=== PATIENT | female | born 1960 | race Two or more races ===

== ENCOUNTER → 2021-01-12 | Outpatient (CLI) | payer MEDICAID ==
[2021-01-12 09:55] LABS: Basophils # (auto) 0.1 10 ^3/uL (0-0.2); Basophils % (auto) 2.5 % (0.0-2.0); Eosinophils # (auto) 0.1 10 ^3/uL (0-0.8); Eosinophils % (auto) 2.5 % (0.0-7.0); Hematocrit 41.5 % (36.0-46.0); Hemoglobin 14.1 g/dL (12.2-16.2); Lymphocytes # (auto) 1.5 10 ^3/uL (0.4-5.4); Lymphocytes % (auto) 39.5 % (10.0-50.0); Mean Corpuscular Hemoglobin 33.5 pg (28.0-32.0); Mean Corpuscular Hgb Conc. 34.1 g/dL (32.0-36.0); Mean Corpuscular Volume 98.4 fL (80.0-100.0); Monocytes # (auto) 0.3 10 ^3/uL (0-1.3); Monocytes % (auto) 8.6 % (0.0-12.0); Neutrophils # (auto) 1.8 10 ^3/uL (1.6-8.6); Neutrophils % (auto) 46.9 % (37.0-80.0); Nucleated Red Blood Cells % 0.1 %; Platelet Count (auto) 143 10^3/uL (140-450); Red Blood Cells 4.22 10^6/uL (4.0-5.20); Red Cell Distribution Width 13.7 % (11.8-14.3); White Blood Cell 3.8 10^3/uL (4.4-10.8)
[2021-01-12 10:08] LABS: Urine Bacteria NONE SEEN /hpf (None Seen); Urine Blood Negative /uL (Negative); Urine Mucus FEW (None Seen); Urine Specific Gravity 1.015 (1.001-1.035); Urine WBC 108 /hpf (0 - 5)
[2021-01-12 10:23] LABS: Potassium 3.4 mmol/L (3.5-5.1)
[2021-01-12 10:38] LABS: Bilirubin, Total 0.6 mg/dL (0.2-1.0); Calcium 8.9 mg/dL (8.5-10.1); Total Protein 8.1 g/dL (6.4-8.2)
== END | disposition home or self-care (01) ==
LOC: LAB 08:47
PROVIDERS: ATTEND Internal Medicine
DX: Z12.11 Encounter for screening for malignant neoplasm of colon (principal); E11.9 Type 2 diabetes mellitus without complications; I10 Essential (primary) hypertension
CPT/HCPCS: 36415; 80053; 80061; 81001; 82043; 83036; 85025

== ENCOUNTER 2021-03-12 05:20 | Emergency (ER) | payer MEDICAID ==
[~2021-03-12] VITALS: Ht 152.4 cm; Wt 52.2 kg
[2021-03-12] MEDS ORDERED: ONDANSETRON HCL 4 MG/2 ML VIAL IV ONE (06:45)
[2021-03-12] MEDS ORDERED: MORPHINE SULFATE 4 MG/ML SYR/VIAL IV ONE (06:45)
[2021-03-12] MEDS ORDERED: SODIUM CHLORIDE 0.9% 1,000 ML IV ONE ×5 (07:15→10:15)
[2021-03-12 08:14] LABS: Albumin 4.8 g/dL (3.4-5.0); Calcium 9.1 mg/dL (8.5-10.1); Potassium 3.5 mmol/L (3.5-5.1)
[2021-03-12 08:15] LABS: Basophils # (auto) 0.1 10 ^3/uL (0-0.2); Basophils % (auto) 3.8 % (0.0-2.0); Eosinophils # (auto) 0 10 ^3/uL (0-0.8); Eosinophils % (auto) 0.2 % (0.0-7.0); Hematocrit 49.3 % (36.0-46.0); Hemoglobin 16.1 g/dL (12.2-16.2); Lymphocytes % (auto) 26.3 % (10.0-50.0); Mean Corpuscular Hemoglobin 32.5 pg (28.0-32.0); Mean Corpuscular Hgb Conc. 32.7 g/dL (32.0-36.0); Mean Corpuscular Volume 99.2 fL (80.0-100.0); Monocytes # (auto) 0.4 10 ^3/uL (0-1.3); Neutrophils # (auto) 2.3 10 ^3/uL (1.6-8.6); Neutrophils % (auto) 59.7 % (37.0-80.0); Nucleated Red Blood Cells % 0.3 %; Platelet Count (auto) 94 10^3/uL (140-450); Red Blood Cells 4.97 10^6/uL (4.0-5.20); Red Cell Distribution Width 14.6 % (11.8-14.3); White Blood Cell 3.9 10^3/uL (4.4-10.8)
[2021-03-12 08:16] LABS: BUN/Creatinine Ratio 6.7; Bilirubin, Total 1.3 mg/dL (0.2-1.0)
[2021-03-12] MEDS ORDERED: THIAMINE 100mg/ml INJ (200mg/2ml VIAL) IV ONE (10:15)
[2021-03-12] MEDS ORDERED: PROMETHAZINE HCL 25 MG/ML 1ML IV ONE (10:15)
[2021-03-12 10:19] VITALS: BP 143/83
[2021-03-12 11:04] LABS: Urine Bacteria FEW /hpf (None Seen); Urine Blood TRACE /uL (Negative); Urine Hyaline Cast MANY /lpf (0 - 2); Urine Mucus FEW (None Seen); Urine Specific Gravity 1.017 (1.001-1.035); Urine WBC 23 /hpf (0 - 5)
[2021-03-12 11:55] LABS: Amphetamine Screen, Urine NEGATIVE (NEGATIVE); Barbiturate Scree,Urine NEGATIVE (NEGATIVE); Benzodiazephine Screen, Urine NEGATIVE (NEGATIVE); Cannabinoid Screen, Urine POSITIVE (NEGATIVE); Cocaine Screen, Urine NEGATIVE (NEGATIVE); Opiate Scree,Urine POSITIVE (NEGATIVE); Phencyclidine Screen, Urine NEGATIVE (NEGATIVE)
== END 2021-03-12 12:06 | disposition home or self-care (01) ==
LOC: EDBD 05:20 → ER 05:20
DX: R10.9 Unspecified abdominal pain (principal); F10.10 Alcohol abuse, uncomplicated; E86.0 Dehydration; E87.2 Acidosis
CPT/HCPCS: 36415; 74176; 80053; 80307; 80320; 81001; 83605; 85025; 93005; 96361; 96374; 96375; 99285; J2270; J2405; J2550; J3411; J7030

== ENCOUNTER 2021-03-13 13:54 | Inpatient (IN) | payer MEDICAID ==
[~2021-03-13] VITALS: Ht 160 cm; Wt 54.9 kg
[2021-03-13 15:07] LABS: Basophils # (auto) 0 10 ^3/uL (0-0.2); Basophils % (auto) 0.5 % (0.0-2.0); Eosinophils # (auto) 0 10 ^3/uL (0-0.8); Hematocrit 45.7 % (36.0-46.0); Hemoglobin 15.4 g/dL (12.2-16.2); Lymphocytes # (auto) 0.5 10 ^3/uL (0.4-5.4); Lymphocytes % (auto) 7.5 % (10.0-50.0); Mean Corpuscular Hemoglobin 33.5 pg (28.0-32.0); Mean Corpuscular Hgb Conc. 33.7 g/dL (32.0-36.0); Mean Corpuscular Volume 99.4 fL (80.0-100.0); Monocytes # (auto) 0.5 10 ^3/uL (0-1.3); Monocytes % (auto) 7.5 % (0.0-12.0); Neutrophils # (auto) 5.6 10 ^3/uL (1.6-8.6); Neutrophils % (auto) 84.5 % (37.0-80.0); Nucleated Red Blood Cells % 0.1 %; Platelet Count (auto) 89 10^3/uL (140-450); Red Cell Distribution Width 14.1 % (11.8-14.3); White Blood Cell 6.6 10^3/uL (4.4-10.8)
[2021-03-13 15:21] LABS: Lactic Acid w/Reflex 2.3 mmol/L (0.4-2.0)
[2021-03-13 15:30] LABS: Alanine Aminotransferase 111 U/L (13-56); Albumin 5.2 g/dL (3.4-5.0); Anion Gap 30 (5-15); BUN/Creatinine Ratio 6.8; Blood Urea Nitrogen 9 mg/dL (7-18); Calcium 9.2 mg/dL (8.5-10.1); Chloride 101 mmol/L (98-107); GFR African American 52 mL/min; GFR Non-African American 43 mL/min; Glucose 156 mg/dL (74-106); Potassium 3.6 mmol/L (3.5-5.1); Sodium 138 mmol/L (136-145)
[2021-03-13] MEDS ORDERED: ONDANSETRON HCL 4 MG/2 ML VIAL IV ONE (15:30)
[2021-03-13 15:41] LABS: Alkaline Phosphatase 121 U/L (45-117); Aspartate Aminotransferase 230 U/L (15-37); Bilirubin, Total 2.5 mg/dL (0.2-1.0); Total Protein 10.3 g/dL (6.4-8.2)
[2021-03-13 15:45] LABS: Carbon Dioxide 7 mmol/L (21-32)
[2021-03-13 19:00] LABS: Urine Bacteria FEW /hpf (None Seen); Urine Blood 2+ /uL (Negative); Urine Hyaline Cast MANY /lpf (0 - 2); Urine Specific Gravity 1.019 (1.001-1.035); Urine WBC 3 /hpf (0 - 5)
[2021-03-13] MEDS ORDERED: SODIUM CHLORIDE 0.9% 1,000 ML IV ONE (19:00)
[2021-03-13] MEDS ORDERED: ACETAMINOPHEN 325 MG TAB PO PRN (20:30)
[2021-03-13] MEDS ORDERED: [UNRECOGNIZED DRUG - OTHER] IV ONE ×2 (20:30)
[2021-03-13] MEDS ORDERED: NITROGLYCERIN 0.4 MG SL TAB SL PRN (20:30)
[2021-03-13] MEDS ORDERED: SOD CHL 0.45% 500 ML IV ONE (20:30)
[2021-03-13] MEDS ORDERED: MORPHINE SULF INJ 2 MG/ML SYRINGE 1ML IV PRN (20:30)
[2021-03-13] MEDS ORDERED: SODIUM BICARBONATE IV ONE ×2 (20:30)
[2021-03-13 21:29] LABS: BUN/Creatinine Ratio 8.2; Calcium 8.7 mg/dL (8.5-10.1); Potassium 3.7 mmol/L (3.5-5.1)
[2021-03-13] MEDS ORDERED: SODIUM BICARBONATE 50ML VIAL 100 ML in D5W 5% 1,000 ML IV SCH (22:15)
[2021-03-13 22:56] LABS: Basophils # (auto) 0.1 10 ^3/uL (0-0.2); Basophils % (auto) 0.7 % (0.0-2.0); Eosinophils # (auto) 0 10 ^3/uL (0-0.8); Hematocrit 43.1 % (36.0-46.0); Hemoglobin 14.7 g/dL (12.2-16.2); Lymphocytes # (auto) 0.4 10 ^3/uL (0.4-5.4); Lymphocytes % (auto) 5.6 % (10.0-50.0); Mean Corpuscular Hemoglobin 33.3 pg (28.0-32.0); Mean Corpuscular Hgb Conc. 34.1 g/dL (32.0-36.0); Mean Corpuscular Volume 97.8 fL (80.0-100.0); Monocytes # (auto) 0.8 10 ^3/uL (0-1.3); Monocytes % (auto) 9.8 % (0.0-12.0); Neutrophils # (auto) 6.4 10 ^3/uL (1.6-8.6); Neutrophils % (auto) 83.9 % (37.0-80.0); Nucleated Red Blood Cells % 0.1 %; Platelet Count (auto) 78 10^3/uL (140-450); Red Cell Distribution Width 14.4 % (11.8-14.3); White Blood Cell 7.6 10^3/uL (4.4-10.8)
[2021-03-13] MEDS: MORPHINE SULF INJ 2 MG/ML SYRINGE 1ML IV PRN (22:59)
[2021-03-13] MEDS: PANTOPRAZOLE 40 MG/10 ML VIAL INJ IV SCH (22:59)
[2021-03-13] MEDS: ONDANSETRON HCL 4 MG/2 ML VIAL IV PRN (23:00)
[2021-03-14] MEDS ORDERED: SODIUM BICARBONATE 8.4% INJ 50ML SYRINGE ONE (00:32)
[2021-03-14 07:02] LABS: Albumin 4.1 g/dL (3.4-5.0); Calcium 8.7 mg/dL (8.5-10.1); Potassium 3.2 mmol/L (3.5-5.1)
[2021-03-14 07:06] LABS: BUN/Creatinine Ratio 8.8; Bilirubin, Total 2.2 mg/dL (0.2-1.0); Total Protein 8.4 g/dL (6.4-8.2)
[2021-03-14] MEDS: POTASSIUM CHL 20MEQ/100ML 100 ML IV SCH ×3 (08:11→11:45)
[2021-03-14] MEDS: SODIUM BICARB 50ML SYR 75 ML in SOD CHL 0.45% 1,000 ML IV SCH ×2 (08:29→19:57)
[2021-03-14] MEDS ORDERED: LIDO1PAD55 TOP (09:00)
[2021-03-14] MEDS ORDERED: PRED1SUS4 (09:00)
[2021-03-14] MEDS ORDERED: FLUO0.05 TOP (09:00)
[2021-03-14] MEDS ORDERED: KETO0.5S31 (09:00)
[2021-03-14] MEDS ORDERED: MOXI0.5S3 (09:00)
[2021-03-14] MEDS: ONDANSETRON HCL 4 MG/2 ML VIAL IV PRN (10:53)
[2021-03-14] MEDS ORDERED: THIAMINE 100mg/ml INJ (200mg/2ml VIAL) IV ONE (11:00)
[2021-03-14] MEDS: PANTOPRAZOLE 40 MG/10 ML VIAL INJ IV SCH ×2 (11:03→21:54)
[2021-03-14 11:35] LABS: Alcohol, Urine < 3.0 mg/dL (0-10); Amphetamine Screen, Urine NEGATIVE (NEGATIVE); Barbiturate Scree,Urine NEGATIVE (NEGATIVE); Benzodiazephine Screen, Urine NEGATIVE (NEGATIVE); Cannabinoid Screen, Urine POSITIVE (NEGATIVE); Cocaine Screen, Urine NEGATIVE (NEGATIVE); Opiate Scree,Urine NEGATIVE (NEGATIVE); Phencyclidine Screen, Urine NEGATIVE (NEGATIVE)
[2021-03-14] MEDS: SUCRALFATE 1 GM/10 ML ORAL SUSP PO SCH ×3 (12:32→21:54)
[2021-03-14] MEDS ORDERED: POTASSIUM PHOSPHATE 44 MEQ in D5W 5% 250 ML IV ONE (13:45)
[2021-03-15 04:00] VITALS: BP 145/80
[2021-03-15 05:08] LABS: Basophils # (auto) 0 10 ^3/uL (0-0.2); Basophils % (auto) 1.5 % (0.0-2.0); Eosinophils # (auto) 0 10 ^3/uL (0-0.8); Eosinophils % (auto) 1.5 % (0.0-7.0); Hemoglobin 11.5 g/dL (12.2-16.2); Lymphocytes # (auto) 0.8 10 ^3/uL (0.4-5.4); Monocytes # (auto) 0.3 10 ^3/uL (0-1.3); Neutrophils # (auto) 1.7 10 ^3/uL (1.6-8.6); Nucleated Red Blood Cells % 0.3 %
[2021-03-15 05:10] LABS: Hematocrit 32.3 % (36.0-46.0); Lymphocytes % (auto) 28.1 % (10.0-50.0); Mean Corpuscular Hemoglobin 33.7 pg (28.0-32.0); Mean Corpuscular Hgb Conc. 35.5 g/dL (32.0-36.0); Monocytes % (auto) 10.1 % (0.0-12.0); Neutrophils % (auto) 58.8 % (37.0-80.0); Platelet Count (auto) 55 10^3/uL (140-450); Red Cell Distribution Width 14.1 % (11.8-14.3); White Blood Cell 2.9 10^3/uL (4.4-10.8)
[2021-03-15] MEDS: SODIUM BICARB 50ML SYR 75 ML in SOD CHL 0.45% 1,000 ML IV SCH ×2 (05:15→08:56)
[2021-03-15 05:24] LABS: BUN/Creatinine Ratio 7.3; Calcium 7.2 mg/dL (8.5-10.1)
[2021-03-15 05:42] LABS: Potassium 2.5 mmol/L (3.5-5.1)
[2021-03-15] MEDS: SUCRALFATE 1 GM/10 ML ORAL SUSP PO SCH ×4 (06:21→21:52)
[2021-03-15] MEDS ORDERED: POTASSIUM CHL 20MEQ/100ML 200 ML IV ONE (06:38)
[2021-03-15] MEDS: POTASSIUM CHL 20MEQ/100ML 100 ML IV SCH ×4 (06:38→23:15)
[2021-03-15] MEDS: LACTATED RINGER'S 1,000 ML IV SCH ×2 (09:45→23:05)
[2021-03-15 09:53] LABS: Albumin 3.2 g/dL (3.4-5.0); Bilirubin, Direct 0.9 mg/dL (0-0.2)
[2021-03-15 09:55] LABS: Bilirubin, Total 2.2 mg/dL (0.2-1.0); Total Protein 6.4 g/dL (6.4-8.2)
[2021-03-15] MEDS: PANTOPRAZOLE 40 MG/10 ML VIAL INJ IV SCH ×2 (10:20→21:52)
[2021-03-15] MEDS ORDERED: POTASSIUM PHOSPHATE 44 MEQ in D5W 5% 250 ML IV ONE (11:00)
[2021-03-15 12:41] VITALS: BP 127/82
[2021-03-15] MEDS: ONDANSETRON HCL 4 MG/2 ML VIAL IV PRN (13:49)
[2021-03-15 16:11] VITALS: BP 130/81
[2021-03-15 20:00] VITALS: BP 125/78
[2021-03-15 20:46] LABS: Phosphorus 2.4 mg/dL (2.5-4.90)
[2021-03-15 20:57] LABS: Potassium 2.7 mmol/L (3.5-5.1)
[2021-03-15] MEDS ORDERED: SODIUM PHOSPHATES 20 MEQ in SODIUM CHL 0.9% 100 ML IV ONE (21:15)
[2021-03-16] VITALS (7 sets, daily range): BP systolic 116–151; BP diastolic 76–91
[2021-03-16] MEDS: POTASSIUM CHL 20MEQ/100ML 100 ML IV SCH (01:15)
[2021-03-16] MEDS: SUCRALFATE 1 GM/10 ML ORAL SUSP PO SCH ×4 (05:16→21:38)
[2021-03-16 05:57] LABS: Potassium 3.5 mmol/L (3.5-5.1)
[2021-03-16 06:06] LABS: Albumin 3.2 g/dL (3.4-5.0); BUN/Creatinine Ratio 4.3; Bilirubin, Total 1.4 mg/dL (0.2-1.0); Calcium 6.9 mg/dL (8.5-10.1); Total Protein 6.1 g/dL (6.4-8.2)
[2021-03-16 08:32] LABS: INR 1.25 (0.9-1.15); Partial Thromboplastin Time 27.1 sec (23.0-31.2)
[2021-03-16] MEDS ORDERED: LIDOCAINE VISCOUS 2% 15ML UD ONE (08:54)
[2021-03-16] MEDS ORDERED: diphenhdrAMINE HCL 50 MG/1 ML VL ONE (08:55)
[2021-03-16 10:31] LABS: Hepatitis A Ab IgM Negative; Hepatitis B Core IgM Negative; Hepatitis B Surface Antigen Negative (Negative); Hepatitis C Antibody Negative (Negative)
[2021-03-16] MEDS: MIDAZOLAM HCL 5 MG/ML-1ML VIAL ONE ×2 (10:43→10:46)
[2021-03-16] MEDS: fentaNYL CITRATE 100 MCG/2 ML VL ONE ×2 (10:43→10:46)
[2021-03-16] MEDS: PANTOPRAZOLE 40 MG/10 ML VIAL INJ IV SCH ×2 (11:09→21:38)
[2021-03-16] MEDS: THIAMINE 100mg/ml INJ (200mg/2ml VIAL) IV SCH (11:09)
[2021-03-16] MEDS: CALCITRIOL 0.25 MCG CAP PO SCH (11:40)
[2021-03-16] MEDS: LACTATED RINGER'S 1,000 ML IV SCH ×2 (12:25→21:39)
[2021-03-16] MEDS: MORPHINE SULF INJ 2 MG/ML SYRINGE 1ML IV PRN ×2 (17:36→21:49)
[2021-03-16] MEDS: ONDANSETRON HCL 4 MG/2 ML VIAL IV PRN ×2 (17:37→21:49)
[2021-03-17] MEDS: MORPHINE SULF INJ 2 MG/ML SYRINGE 1ML IV PRN ×3 (04:46→18:01)
[2021-03-17] MEDS: ONDANSETRON HCL 4 MG/2 ML VIAL IV PRN ×3 (04:47→16:31)
[2021-03-17 05:00] VITALS: BP 141/85
[2021-03-17 05:44] LABS: BUN/Creatinine Ratio 7.5; Bilirubin, Total 0.9 mg/dL (0.2-1.0); Calcium 7.3 mg/dL (8.5-10.1)
[2021-03-17 05:46] LABS: Potassium 2.8 mmol/L (3.5-5.1)
[2021-03-17] MEDS ORDERED: POTASSIUM CHL 20 Meq TABLET PO ONE (06:00)
[2021-03-17] MEDS: POTASSIUM CHL 20MEQ/100ML 100 ML IV SCH ×2 (06:21→08:39)
[2021-03-17] MEDS: SUCRALFATE 1 GM/10 ML ORAL SUSP PO SCH ×4 (06:58→21:48)
[2021-03-17 08:39] VITALS: BP 123/79
[2021-03-17] MEDS: PANTOPRAZOLE 40 MG/10 ML VIAL INJ IV SCH ×2 (09:04→21:48)
[2021-03-17] MEDS: CALCITRIOL 0.25 MCG CAP PO SCH (09:04)
[2021-03-17] MEDS: THIAMINE 100mg/ml INJ (200mg/2ml VIAL) IV SCH (09:04)
[2021-03-17 12:24] VITALS: BP 109/65
[2021-03-17 17:00] VITALS: BP 133/81
[2021-03-17 21:54] VITALS: BP 125/73
[2021-03-18] MEDS: ONDANSETRON HCL 4 MG/2 ML VIAL IV PRN ×2 (04:15→10:39)
[2021-03-18] MEDS: MORPHINE SULF INJ 2 MG/ML SYRINGE 1ML IV PRN ×2 (04:19→10:39)
[2021-03-18 04:42] VITALS: BP 130/79
[2021-03-18] MEDS: SUCRALFATE 1 GM/10 ML ORAL SUSP PO SCH ×2 (06:34→11:30)
[2021-03-18 07:15] LABS: Potassium 3.5 mmol/L (3.5-5.1)
[2021-03-18 07:17] LABS: BUN/Creatinine Ratio 10.4; Phosphorus 2.6 mg/dL (2.5-4.90)
[2021-03-18 09:00] VITALS: BP 129/78
[2021-03-18 09:45] LABS: Basophils # (auto) 0 10 ^3/uL (0-0.2); Basophils % (auto) 1.2 % (0.0-2.0); Eosinophils # (auto) 0.1 10 ^3/uL (0-0.8); Eosinophils % (auto) 1.9 % (0.0-7.0); Hematocrit 33.5 % (36.0-46.0); Hemoglobin 11.4 g/dL (12.2-16.2); Lymphocytes # (auto) 0.9 10 ^3/uL (0.4-5.4); Lymphocytes % (auto) 23.2 % (10.0-50.0); Mean Corpuscular Hemoglobin 32.7 pg (28.0-32.0); Mean Corpuscular Hgb Conc. 33.9 g/dL (32.0-36.0); Mean Corpuscular Volume 96.4 fL (80.0-100.0); Monocytes # (auto) 0.7 10 ^3/uL (0-1.3); Monocytes % (auto) 17.1 % (0.0-12.0); Neutrophils # (auto) 2.3 10 ^3/uL (1.6-8.6); Neutrophils % (auto) 56.6 % (37.0-80.0); Nucleated Red Blood Cells % 0.1 %; Platelet Count (auto) 114 10^3/uL (140-450); Red Blood Cells 3.47 10^6/uL (4.0-5.20); Red Cell Distribution Width 14.4 % (11.8-14.3)
[2021-03-18] MEDS: CALCITRIOL 0.25 MCG CAP PO SCH (10:21)
[2021-03-18] MEDS: PANTOPRAZOLE 40 MG/10 ML VIAL INJ IV SCH (10:21)
[2021-03-18] MEDS: THIAMINE 100mg/ml INJ (200mg/2ml VIAL) IV SCH (10:21)
[2021-03-18 12:19] VITALS: BP 129/78
[2021-03-18 13:00] VITALS: BP 112/71
== END 2021-03-18 15:20 | disposition home health service (06) | DRG 241 ==
LOC: EDBD 13:54 → EDSEX 13:54 → ER 13:54 → TELE 20:16 → DOU IN ICU 03-14 23:45 → TELE-CENTR 03-16 15:50
PROVIDERS: ADMIT Internal Medicine; ATTEND Internal Medicine
PROC: 0DJ08ZZ Inspection of Upper Intestinal Tract, Via Natural or Artificial Opening Endoscopic (ICD-10-PCS; principal; 2021-03-16 10:15)
DX: K29.71 Gastritis, unspecified, with bleeding (principal); N17.9 Acute kidney failure, unspecified; E87.2 Acidosis; E83.51 Hypocalcemia; E83.39 Other disorders of phosphorus metabolism; Z20.822 Contact with and (suspected) exposure to COVID-19; K76.0 Fatty (change of) liver, not elsewhere classified; E86.0 Dehydration; E11.9 Type 2 diabetes mellitus without complications; E87.6 Hypokalemia; K76.89 Other specified diseases of liver; K20.90 Esophagitis, unspecified without bleeding; K44.9 Diaphragmatic hernia without obstruction or gangrene; E86.9 Volume depletion, unspecified; E88.89 Other specified metabolic disorders; F10.20 Alcohol dependence, uncomplicated; F12.90 Cannabis use, unspecified, uncomplicated; J44.9 Chronic obstructive pulmonary disease, unspecified; K70.9 Alcoholic liver disease, unspecified; Z98.49 Cataract extraction status, unspecified eye; Z88.2 Allergy status to sulfonamides; Z98.891 History of uterine scar from previous surgery; Z90.49 Acquired absence of other specified parts of digestive tract; Z80.52 Family history of malignant neoplasm of bladder; Z82.49 Family history of ischemic heart disease and other diseases of the circulatory system; Z68.23 Body mass index [BMI] 23.0-23.9, adult; Z80.9 Family history of malignant neoplasm, unspecified; Z83.3 Family history of diabetes mellitus; Z87.442 Personal history of urinary calculi; Z87.59 Personal history of other complications of pregnancy, childbirth and the puerperium
CPT/HCPCS: 36415; 36600; 71045; 74176; 76705; 80048; 80053; 80074; 80076; 80307; 81001; 82010; 82306; 82805; 83036; 83605; 83735; 83880; 83930; 83970; 84100; 84132; 84484; 85025; 85610; 85730; 87040; 87081; 87426; 93005; 97110; 97116; 97530; C9113; G0378; J2250; J2405; J3480; J7060

== ENCOUNTER 2021-11-09 15:41 | Inpatient (IN) | payer MEDICAID ==
[~2021-11-09] VITALS: Ht 152.4 cm; Wt 58.1 kg
[~2021-11-09 15:41] MED LIST: FLUO0.05 TOP; KETO0.5S31; LIDO1PAD55 TOP; MOXI0.5S3; PRED1SUS4
[2021-11-09] MEDS ORDERED: cefTRIAXone 1GM/50ML D5W 50 ML IV ONE (16:30)
[2021-11-09] MEDS ORDERED: PANTOPRAZOLE 40 MG/10 ML VIAL INJ IV ONE (16:30)
[2021-11-09] MEDS ORDERED: SODIUM CHLORIDE 0.9% 1,000 ML IV ONE (16:30)
[2021-11-09 16:38] LABS: Basophils # (auto) 0 10 ^3/uL (0-0.2); Basophils % (auto) 0.4 % (0.0-2.0); Eosinophils # (auto) 0 10 ^3/uL (0-0.8); Eosinophils % (auto) 0.1 % (0.0-7.0); Hematocrit 42.9 % (36.0-46.0); Hemoglobin 13.8 g/dL (12.2-16.2); Lymphocytes # (auto) 0.5 10 ^3/uL (0.4-5.4); Lymphocytes % (auto) 7.3 % (10.0-50.0); Mean Corpuscular Hemoglobin 28.7 pg (28.0-32.0); Mean Corpuscular Hgb Conc. 32.1 g/dL (32.0-36.0); Mean Corpuscular Volume 89.4 fL (80.0-100.0); Monocytes # (auto) 0.7 10 ^3/uL (0-1.3); Monocytes % (auto) 9.7 % (0.0-12.0); Neutrophils # (auto) 5.8 10 ^3/uL (1.6-8.6); Neutrophils % (auto) 82.5 % (37.0-80.0); Nucleated Red Blood Cells % 0.2 %; Red Cell Distribution Width 18.6 % (11.8-14.3); White Blood Cell 7.1 10^3/uL (4.4-10.8)
[2021-11-09] MEDS ORDERED: ONDANSETRON HCL 4 MG/2 ML VIAL ONE (16:59)
[2021-11-09 17:05] LABS: Albumin 4.6 g/dL (3.4-5.0); Calcium 8.3 mg/dL (8.5-10.1); Potassium 3.8 mmol/L (3.5-5.1)
[2021-11-09 17:08] LABS: BUN/Creatinine Ratio 8.8; Bilirubin, Total 2.2 mg/dL (0.2-1.0)
[2021-11-09] MEDS ORDERED: ONDANSETRON HCL 4 MG/2 ML VIAL IV ONE (17:15)
[2021-11-09] MEDS ORDERED: METOCLOPRAMIDE HCL 5MG/ml INJ 2ml VIAL IV ONE (17:45)
[2021-11-09] MEDS ORDERED: OCTREOTIDE ACETATE 100 MCG in SODIUM CHL 0.9% 50 ML IV ONE (18:00)
[2021-11-09] MEDS ORDERED: OCTREOTIDE ACETATE 500 MCG in SODIUM CHL 0.9% 99 ML IV SCH (18:00)
[2021-11-09 18:19] VITALS: BP 110/43
[2021-11-09] MEDS ORDERED: ETOMIDATE (2MG/ML) 20ML VIAL IV ONE (18:45)
[2021-11-09] MEDS ORDERED: ROCURONIUM 10MG/ML 10ML VIAL IV ONE (18:45)
[2021-11-09] MEDS ORDERED: MIDAZOLAM DRIP 50 mg/50mL 50 ML IV ONE (18:57)
[2021-11-09] MEDS: MIDAZOLAM DRIP 50 mg/50mL 50 ML IV SCH ×2 (19:00→22:46)
[2021-11-09 19:03] LABS: INR 1.19 (0.9-1.15); Partial Thromboplastin Time 31.4 sec (23.6-33.0)
[2021-11-09 19:33] VITALS: BP 106/70
[2021-11-09 21:23] LABS: Magnesium 1.5 mg/dL (1.6-2.6)
[2021-11-09] MEDS ORDERED: dilTIAZem 25 MG/5 ML VIAL IV ONE ×2 (22:08→22:15)
[2021-11-09 22:09] LABS: Urine Bacteria NONE SEEN /hpf (None Seen); Urine Blood 2+ /uL (Negative); Urine Hyaline Cast MANY /lpf (0 - 2); Urine Mucus FEW (None Seen); Urine WBC 5 /hpf (0 - 5)
[2021-11-09 22:21] VITALS: BP 94/63
[2021-11-09 22:27] LABS: Amphetamine Screen, Urine NEGATIVE (NEGATIVE); Barbiturate Scree,Urine NEGATIVE (NEGATIVE); Benzodiazephine Screen, Urine NEGATIVE (NEGATIVE); Cannabinoid Screen, Urine POSITIVE (NEGATIVE); Cocaine Screen, Urine NEGATIVE (NEGATIVE); Opiate Scree,Urine NEGATIVE (NEGATIVE); Phencyclidine Screen, Urine NEGATIVE (NEGATIVE)
[2021-11-09 22:30] LABS: Lactic Acid w/Reflex 2.6 mmol/L (0.4-2.0)
[2021-11-09] MEDS ORDERED: MAGNESIUM SULFATE 1GM/100ML 100 ML IV ONE (22:30)
[2021-11-09 22:39] LABS: Basophils # (auto) 0 10 ^3/uL (0-0.2); Eosinophils # (auto) 0 10 ^3/uL (0-0.8); Hematocrit 42.6 % (36.0-46.0); Lymphocytes # (auto) 0.3 10 ^3/uL (0.4-5.4); Mean Corpuscular Hemoglobin 28.7 pg (28.0-32.0); Nucleated Red Blood Cells % 0.2 %
[2021-11-09 22:41] LABS: Basophils % (auto) 0.7 % (0.0-2.0); Hemoglobin 13.8 g/dL (12.2-16.2); Lymphocytes % (auto) 4.9 % (10.0-50.0); Mean Corpuscular Hgb Conc. 32.5 g/dL (32.0-36.0); Mean Corpuscular Volume 88.4 fL (80.0-100.0); Monocytes # (auto) 0.4 10 ^3/uL (0-1.3); Monocytes % (auto) 8.4 % (0.0-12.0); Neutrophils # (auto) 4.5 10 ^3/uL (1.6-8.6); Red Blood Cells 4.82 10^6/uL (4.0-5.20); Red Cell Distribution Width 17.3 % (11.8-14.3); White Blood Cell 5.3 10^3/uL (4.4-10.8)
[2021-11-09] MEDS: PANTOPRAZOLE 40 MG/10 ML VIAL INJ IV SCH (22:45)
[2021-11-09 22:56] LABS: Albumin 3.6 g/dL (3.4-5.0); Calcium 6.8 mg/dL (8.5-10.1); Potassium 3.7 mmol/L (3.5-5.1)
[2021-11-09] MEDS: fentaNYL Drip 2500mCg/250mlNS 250 ML IV SCH (22:57)
[2021-11-09 23:00] LABS: BUN/Creatinine Ratio 13.4; Bilirubin, Total 2.4 mg/dL (0.2-1.0); Total Protein 7.1 g/dL (6.4-8.2)
[2021-11-10] VITALS (29 sets, daily range): BP systolic 94–146; BP diastolic 59–98
[2021-11-10] MEDS ORDERED: MORPHINE SULFATE 4 MG/ML SYR/VIAL IV PRN (01:00)
[2021-11-10] MEDS ORDERED: NITROGLYCERIN 0.4 MG SL TAB SL PRN (01:00)
[2021-11-10] MEDS ORDERED: MORPHINE SULFATE INJECTION 2 MG/ML SYRG IV PRN (01:00)
[2021-11-10] MEDS: SODIUM CHLORIDE 0.9% 1,000 ML IV SCH ×3 (03:11→17:40)
[2021-11-10] MEDS: MIDAZOLAM DRIP 50 mg/50mL 50 ML IV SCH ×4 (03:13→13:51)
[2021-11-10 06:25] LABS: Basophils # (auto) 0 10 ^3/uL (0-0.2); Eosinophils # (auto) 0 10 ^3/uL (0-0.8); Hemoglobin 12.3 g/dL (12.2-16.2); Lymphocytes # (auto) 0.4 10 ^3/uL (0.4-5.4); Monocytes # (auto) 0.6 10 ^3/uL (0-1.3); Neutrophils # (auto) 4.6 10 ^3/uL (1.6-8.6)
[2021-11-10 06:31] LABS: Basophils % (auto) 0.3 % (0.0-2.0); Lymphocytes % (auto) 7.1 % (10.0-50.0); Mean Corpuscular Hemoglobin 28.5 pg (28.0-32.0); Mean Corpuscular Hgb Conc. 32.4 g/dL (32.0-36.0); Mean Corpuscular Volume 87.9 fL (80.0-100.0); Monocytes % (auto) 10.7 % (0.0-12.0); Neutrophils % (auto) 81.9 % (37.0-80.0); Nucleated Red Blood Cells % 0.4 %; Red Blood Cells 4.32 10^6/uL (4.0-5.20); Red Cell Distribution Width 17.4 % (11.8-14.3); White Blood Cell 5.6 10^3/uL (4.4-10.8)
[2021-11-10 06:46] LABS: Calcium 6.3 mg/dL (8.5-10.1); Potassium 3.9 mmol/L (3.5-5.1)
[2021-11-10 06:52] LABS: BUN/Creatinine Ratio 17.7; Bilirubin, Total 1.3 mg/dL (0.2-1.0); Total Protein 5.9 g/dL (6.4-8.2)
[2021-11-10] MEDS: PANTOPRAZOLE 40 MG/10 ML VIAL INJ IV SCH ×2 (09:35→21:59)
[2021-11-10 10:07] LABS: Basophils # (auto) 0 10 ^3/uL (0-0.2); Basophils % (auto) 0.3 % (0.0-2.0); Eosinophils # (auto) 0 10 ^3/uL (0-0.8); Eosinophils % (auto) 0.1 % (0.0-7.0); Hematocrit 35.9 % (36.0-46.0); Hemoglobin 12.2 g/dL (12.2-16.2); Lymphocytes # (auto) 0.4 10 ^3/uL (0.4-5.4); Lymphocytes % (auto) 8.3 % (10.0-50.0); Mean Corpuscular Hemoglobin 29.7 pg (28.0-32.0); Mean Corpuscular Hgb Conc. 34.1 g/dL (32.0-36.0); Mean Corpuscular Volume 87.2 fL (80.0-100.0); Monocytes # (auto) 0.5 10 ^3/uL (0-1.3); Monocytes % (auto) 10.2 % (0.0-12.0); Neutrophils # (auto) 4.3 10 ^3/uL (1.6-8.6); Neutrophils % (auto) 81.1 % (37.0-80.0); Nucleated Red Blood Cells % 0.4 %; Red Blood Cells 4.12 10^6/uL (4.0-5.20); Red Cell Distribution Width 17.2 % (11.8-14.3); White Blood Cell 5.3 10^3/uL (4.4-10.8)
[2021-11-10] MEDS: fentaNYL Drip 2500mCg/250mlNS 250 ML IV SCH (23:00)
[2021-11-11] VITALS (46 sets, daily range): BP systolic 106–172; BP diastolic 62–116
[2021-11-11] MEDS: SODIUM CHLORIDE 0.9% 1,000 ML IV SCH ×4 (01:53→21:48)
[2021-11-11 09:00] LABS: Basophils # (auto) 0 10 ^3/uL (0-0.2); Basophils % (auto) 0.9 % (0.0-2.0); Eosinophils # (auto) 0.1 10 ^3/uL (0-0.8); Lymphocytes # (auto) 0.8 10 ^3/uL (0.4-5.4); White Blood Cell 4.7 10^3/uL (4.4-10.8)
[2021-11-11 09:03] LABS: Eosinophils % (auto) 1.4 % (0.0-7.0); Hematocrit 36.3 % (36.0-46.0); Hemoglobin 11.8 g/dL (12.2-16.2); Lymphocytes % (auto) 16.2 % (10.0-50.0); Mean Corpuscular Hemoglobin 28.5 pg (28.0-32.0); Mean Corpuscular Hgb Conc. 32.3 g/dL (32.0-36.0); Mean Corpuscular Volume 88.1 fL (80.0-100.0); Monocytes # (auto) 0.6 10 ^3/uL (0-1.3); Neutrophils # (auto) 3.2 10 ^3/uL (1.6-8.6); Neutrophils % (auto) 69.5 % (37.0-80.0); Nucleated Red Blood Cells % 0.1 %; Red Blood Cells 4.12 10^6/uL (4.0-5.20); Red Cell Distribution Width 17.7 % (11.8-14.3)
[2021-11-11 09:26] LABS: Albumin 2.7 g/dL (3.4-5.0); Calcium 7.2 mg/dL (8.5-10.1); Potassium 3.4 mmol/L (3.5-5.1)
[2021-11-11 09:29] LABS: BUN/Creatinine Ratio 7.7; Bilirubin, Total 1.4 mg/dL (0.2-1.0); Total Protein 5.5 g/dL (6.4-8.2)
[2021-11-11] MEDS: PANTOPRAZOLE 40 MG/10 ML VIAL INJ IV SCH ×2 (10:13→21:48)
[2021-11-11] MEDS: POTASSIUM CHL 10MEQ/50ML 50 ML IV SCH (12:00)
[2021-11-11] MEDS ORDERED: ACETAMINOPHEN 650 MG RECT SUPP PR PRN (18:45)
[2021-11-11] MEDS: MIDAZOLAM DRIP 50 mg/50mL 50 ML IV SCH (19:00)
[2021-11-12] MEDS: MORPHINE SULFATE INJECTION 2 MG/ML SYRG IV PRN ×2 (00:22→21:54)
[2021-11-12 00:58] VITALS: BP 143/87
[2021-11-12 05:00] VITALS: BP_SYST 127; BP_SYST 138; BP_DIAS 56; BP_DIAS 86
[2021-11-12] MEDS: SODIUM CHLORIDE 0.9% 1,000 ML IV SCH ×2 (08:44→17:01)
[2021-11-12] MEDS: ONDANSETRON HCL 4 MG/2 ML VIAL IV PRN ×3 (08:44→21:50)
[2021-11-12 09:00] VITALS: BP 142/83
[2021-11-12 09:29] LABS: Basophils % (auto) 1.1 % (0.0-2.0); Eosinophils # (auto) 0.1 10 ^3/uL (0-0.8); Eosinophils % (auto) 1.6 % (0.0-7.0); Hemoglobin 11.6 g/dL (12.2-16.2); Mean Corpuscular Hemoglobin 28.7 pg (28.0-32.0); Red Blood Cells 4.04 10^6/uL (4.0-5.20)
[2021-11-12 09:32] LABS: Basophils # (auto) 0 10 ^3/uL (0-0.2); Hematocrit 35.2 % (36.0-46.0); Lymphocytes # (auto) 0.9 10 ^3/uL (0.4-5.4); Lymphocytes % (auto) 18.4 % (10.0-50.0); Monocytes # (auto) 0.6 10 ^3/uL (0-1.3); Monocytes % (auto) 11.9 % (0.0-12.0); Neutrophils # (auto) 3.1 10 ^3/uL (1.6-8.6); Nucleated Red Blood Cells % 0.2 %; Red Cell Distribution Width 16.9 % (11.8-14.3); White Blood Cell 4.6 10^3/uL (4.4-10.8)
[2021-11-12 09:43] LABS: BUN/Creatinine Ratio 4.4; Calcium 7.6 mg/dL (8.5-10.1)
[2021-11-12] MEDS: PANTOPRAZOLE 40 MG/10 ML VIAL INJ IV SCH ×2 (09:44→21:49)
[2021-11-12 10:44] LABS: Potassium 2.6 mmol/L (3.5-5.1)
[2021-11-12] MEDS ORDERED: POTASSIUM CHL 10MEQ/50ML 50 ML IV SCH (11:15)
[2021-11-12] MEDS: POTASSIUM CHL 10MEQ/50ML 50 ML IV SCH ×6 (11:47→16:40)
[2021-11-12 13:00] VITALS: BP 153/78
[2021-11-12 16:00] VITALS: BP 134/91
[2021-11-12 22:00] VITALS: BP 146/84
[2021-11-12] MEDS: TEMAZEPAM 15 MG CAP PO PRN (23:18)
[2021-11-13] MEDS: SODIUM CHLORIDE 0.9% 1,000 ML IV SCH ×3 (04:09→18:06)
[2021-11-13 04:53] VITALS: BP 152/89
[2021-11-13 07:39] LABS: BUN/Creatinine Ratio 4.8; Calcium 7.8 mg/dL (8.5-10.1)
[2021-11-13 07:42] LABS: Potassium 2.6 mmol/L (3.5-5.1)
[2021-11-13] MEDS: PANTOPRAZOLE 40 MG/10 ML VIAL INJ IV SCH ×2 (11:53→22:10)
[2021-11-13] MEDS ORDERED: POTASSIUM EFFERVESENT TAB 25 MEQ PO ONE (15:00)
[2021-11-13] MEDS: POTASSIUM CHL 10MEQ/50ML 50 ML IV SCH ×5 (18:04→23:17)
[2021-11-13] MEDS: ONDANSETRON HCL 4 MG/2 ML VIAL IV PRN (19:38)
[2021-11-13 22:00] VITALS: BP 134/84
[2021-11-13] MEDS: TEMAZEPAM 15 MG CAP PO PRN (22:10)
[2021-11-13] MEDS ORDERED: POTASSIUM CHL 10MEQ/50ML 50 ML IV ONE (23:09)
[2021-11-14] MEDS ORDERED: POTASSIUM CHL 10MEQ/50ML 50 ML IV ONE (00:43)
[2021-11-14] MEDS: POTASSIUM CHL 10MEQ/50ML 50 ML IV SCH (00:44)
[2021-11-14] MEDS: SODIUM CHLORIDE 0.9% 1,000 ML IV SCH ×2 (05:01→13:20)
[2021-11-14 05:05] VITALS: BP 131/82
[2021-11-14 05:52] LABS: Hematocrit 37.3 % (36.0-46.0); Hemoglobin 12.7 g/dL (12.2-16.2); Mean Corpuscular Hemoglobin 29.1 pg (28.0-32.0); Mean Corpuscular Volume 85.7 fL (80.0-100.0); Red Blood Cells 4.35 10^6/uL (4.0-5.20); White Blood Cell 3.8 10^3/uL (4.4-10.8)
[2021-11-14 06:03] LABS: Calcium 8.2 mg/dL (8.5-10.1); Potassium 3.4 mmol/L (3.5-5.1)
[2021-11-14 06:05] LABS: BUN/Creatinine Ratio 4.3
[2021-11-14 06:08] LABS: Basophils % (manual) 0 (0.0-2.0); Blast Cells 0; Metamyelocytes % 0; Myelocytes % 0; Promyelocytes % 0; Reactive Lymphocytes 0
[2021-11-14 07:35] LABS: Band Neutrophils % (manual) 1; Eosinophils % (manual) 3 (0-7); Lymphocytes % (manual) 24 (10.0-50.0); Monocytes % (manual) 21 (0-12)
[2021-11-14] MEDS: PANTOPRAZOLE 40 MG/10 ML VIAL INJ IV SCH (09:19)
[2021-11-14 09:34] VITALS: BP 167/94
[2021-11-14] MEDS ORDERED: POTASSIUM EFFERVESENT TAB 25 MEQ PO ONE (09:45)
[2021-11-14 14:16] VITALS: BP 136/81
[2021-11-14] MEDS: MORPHINE SULFATE INJECTION 2 MG/ML SYRG IV PRN (14:57)
[2021-11-14 17:36] VITALS: BP_SYST 114; BP_SYST 127; BP_DIAS 75; BP_DIAS 77
== END 2021-11-14 17:15 | DRG 241 ==
LOC: EDBD 15:41 → EDUNIT# 15:41 → ER 15:50 → OVERFLOW 11-10 00:51 → CATH ICU 11-10 16:25 → TELE-CENTR 11-11 22:20
PROVIDERS: ADMIT Hospitalist; ATTEND Hospitalist
PROC: 0BH17EZ Insertion of Endotracheal Airway into Trachea, Via Natural or Artificial Opening (ICD-10-PCS; 2021-11-09)
PROC: 06HM33Z Insertion of Infusion Device into Right Femoral Vein, Percutaneous Approach (ICD-10-PCS; 2021-11-09)
PROC: 0DJ08ZZ Inspection of Upper Intestinal Tract, Via Natural or Artificial Opening Endoscopic (ICD-10-PCS; 2021-11-09)
PROC: 30233N1 Transfusion of Nonautologous Red Blood Cells into Peripheral Vein, Percutaneous Approach (ICD-10-PCS; 2021-11-09)
PROC: 5A1945Z Respiratory Ventilation, 24-96 Consecutive Hours (ICD-10-PCS; principal; 2021-11-09 18:30)
DX: K29.71 Gastritis, unspecified, with bleeding (principal); J96.01 Acute respiratory failure with hypoxia; N17.9 Acute kidney failure, unspecified; K20.91 Esophagitis, unspecified with bleeding; I95.9 Hypotension, unspecified; K74.60 Unspecified cirrhosis of liver; J44.9 Chronic obstructive pulmonary disease, unspecified; E86.0 Dehydration; E86.1 Hypovolemia; K44.9 Diaphragmatic hernia without obstruction or gangrene; E83.42 Hypomagnesemia; E11.9 Type 2 diabetes mellitus without complications; F51.04 Psychophysiologic insomnia; I10 Essential (primary) hypertension; R79.89 Other specified abnormal findings of blood chemistry; J98.11 Atelectasis; Z83.3 Family history of diabetes mellitus; Z87.59 Personal history of other complications of pregnancy, childbirth and the puerperium; Z88.2 Allergy status to sulfonamides; Z90.49 Acquired absence of other specified parts of digestive tract
CPT/HCPCS: 31500; 36415; 36430; 36556; 36600; 43235; 71045; 71250; 74176; 80048; 80053; 80307; 81001; 82805; 83605; 83735; 83880; 84484; 85007; 85025; 85027; 85610; 85730; 86850; 86900; 86901; 86920; 87040; 87070; 87081; 87205; 87426; 93005; 93306; 94002; 94003; 96361; 96374; 97110; 97116; 97163; 97530; 99291; C9113; G0378; J0696; J2250; J2405

== ENCOUNTER 2022-11-15 16:31 | Emergency (ER) | payer MEDICAID ==
[~2022-11-15] VITALS: Ht 152.4 cm; Wt 58.0 kg
[2022-11-15 17:44] VITALS: BP 124/91
[2022-11-15] MEDS ORDERED: FLUORESCEIN SOD OPTH TEST STRIP OP ONE (17:45)
[2022-11-15] MEDS ORDERED: METH4PAK PO (17:52)
[2022-11-15] MEDS ORDERED: AUG875T PO (17:52)
[2022-11-15] MEDS ORDERED: CIP03OS RIGHTEYE (17:52)
== END 2022-11-15 18:03 | disposition home or self-care (01) ==
LOC: ER 16:31
DX: S05.01XA Injury of conjunctiva and corneal abrasion without foreign body, right eye, initial encounter (principal); H66.92 Otitis media, unspecified, left ear; X58.XXXA Exposure to other specified factors, initial encounter; Y93.89 Activity, other specified; Y92.89 Other specified places as the place of occurrence of the external cause; Y99.8 Other external cause status

== ENCOUNTER 2023-05-08 12:23 | Emergency (ER) | payer MEDICARE, MEDICAID ==
[~2023-05-08] VITALS: Ht 152.4 cm; Wt 59.0 kg
[~2023-05-08 12:23] MED LIST changes: +AUG875T PO; +CIP03OS RIGHTEYE; +METH4PAK PO
[2023-05-08 16:22] VITALS: BP 135/85; PULSE 71; RESP 18; TEMP 98; O2SAT 100
[2023-05-08] MEDS ORDERED: KETOROLAC TROMETH 30 MG/ML 1ML VIAL IM ONE (17:00)
[2023-05-08] MEDS ORDERED: IBUP-1455 PO (17:36)
== END 2023-05-08 17:44 | disposition home or self-care (01) ==
LOC: ER 12:23 → EDBD 12:23 → ER 17:43
DX: S93.401A Sprain of unspecified ligament of right ankle, initial encounter (principal); M25.561 Pain in right knee; M25.551 Pain in right hip; J44.9 Chronic obstructive pulmonary disease, unspecified; F12.10 Cannabis abuse, uncomplicated; Z90.49 Acquired absence of other specified parts of digestive tract; Z88.2 Allergy status to sulfonamides; W01.0XXA Fall on same level from slipping, tripping and stumbling without subsequent striking against object, initial encounter; Y93.01 Activity, walking, marching and hiking; Y92.89 Other specified places as the place of occurrence of the external cause; Y99.8 Other external cause status
CPT/HCPCS: 73610; 73630; 96372; 99284; J1885

== ENCOUNTER 2023-06-19 14:56 | Inpatient (IN) | payer MEDICARE, MEDICAID ==
[~2023-06-19] VITALS: Ht 152.4 cm; Wt 49.0 kg
[~2023-06-19 14:56] MED LIST changes: +IBUP-1455 PO
[2023-06-19] MEDS ORDERED: ACETAMINOPHEN 325 MG TAB PO PRN (23:15)
[2023-06-19] MEDS ORDERED: TEMAZEPAM 15 MG CAP PO PRN (23:15)
[2023-06-19] MEDS ORDERED: HYDROcodone-ACET 5/325MG TAB PO PRN (23:15)
[2023-06-19 23:34] LABS: Basophils # (auto) 0.1 10 ^3/uL (0-0.2); Basophils % (auto) 1.9 % (0.0-2.0); Eosinophils # (auto) 0.2 10 ^3/uL (0-0.8); Monocytes # (auto) 0.5 10 ^3/uL (0-1.3); Neutrophils # (auto) 2.7 10 ^3/uL (1.6-8.6); Nucleated Red Blood Cells % 0.1 %
[2023-06-19 23:36] LABS: Eosinophils % (auto) 3.3 % (0.0-7.0); Hematocrit 32.8 % (36.0-46.0); Hemoglobin 10.5 g/dL (12.2-16.2); Mean Corpuscular Hemoglobin 26.6 pg (28.0-32.0); Mean Corpuscular Hgb Conc. 31.9 g/dL (32.0-36.0); Mean Corpuscular Volume 83.2 fL (80.0-100.0); Monocytes % (auto) 8.4 % (0.0-12.0); Neutrophils % (auto) 49.4 % (37.0-80.0); Red Blood Cells 3.94 10^6/uL (4.0-5.20); Red Cell Distribution Width 18.5 % (11.8-14.3); White Blood Cell 5.5 10^3/uL (4.4-10.8)
[2023-06-19 23:45] VITALS: PULSE 53; RESP 12; O2SAT 100
[2023-06-19 23:50] LABS: INR 1.12 (0.9-1.15); Partial Thromboplastin Time 30.9 SEC (24.5-34.5); Prothrombin Time 11.7 sec (9.3-11.8)
[2023-06-19 23:52] LABS: Alanine Aminotransferase 33 U/L (7-40); Albumin 3.9 g/dL (3.2-4.8); Alkaline Phosphatase 136 U/L (46-116); Anion Gap 9 (5-15); Aspartate Aminotransferase 59 U/L (13-40); BUN/Creatinine Ratio 15.6 (10.0-20.0); Bilirubin, Total 0.5 mg/dL (0.2-1.0); Blood Urea Nitrogen 7 mg/dL (9-23); Calcium 8.8 mg/dL (8.7-10.4); Carbon Dioxide 23 mmol/L (20-30); Chloride 112 mmol/L (98-107); Glucose 84 mg/dL (74-106); Potassium 3.5 mmol/L (3.5-5.1); Sodium 144 mmol/L (136-145)
[2023-06-19 23:53] LABS: Total Protein 6.5 g/dL (5.7-8.2)
[2023-06-20] VITALS (7 sets, daily range): BP systolic 120–152; BP diastolic 68–79; PULSE 57–80; RESP 9–18; TEMP 97.9–98.2; O2SAT 97–100
[2023-06-20] MEDS: ONDANSETRON HCL 4 MG/2 ML VIAL IV PRN ×4 (00:35→22:07)
[2023-06-20] MEDS: MORPHINE SULFATE INJ 2 MG/ml SYRG IV PRN ×4 (00:36→22:07)
[2023-06-20 01:05] LABS: Urine Bacteria NONE SEEN /hpf (None Seen); Urine Blood Negative /uL (Negative); Urine Clarity Clear (Clear); Urine Color Yellow (Yellow); Urine Hyaline Cast FEW /lpf (0 - 2); Urine Mucus FEW (None Seen); Urine Protein, UAD Negative (Negative); Urine Urobilinogen Normal (Negative); Urine WBC 3 /hpf (0 - 5); Urine pH 5.5 (5.0-8.0)
[2023-06-20] MEDS ORDERED: PANTOPRAZOLE 40 MG TAB PO SCH (10:00)
[2023-06-20] MEDS ORDERED: ONDA-155 (12:09)
[2023-06-20] MEDS ORDERED: hydrOXYzine 25 MG TAB or CAP PO ONE (14:00)
[2023-06-20 15:16] LABS: Hepatitis B Surface Antigen Negative (Negative)
[2023-06-20 15:37] LABS: Hepatitis C Antibody Negative (Negative)
[2023-06-20] MEDS: diphenhdrAMINE HCL 25 MG CAP PO PRN (20:12)
[2023-06-21] VITALS (8 sets, daily range): BP systolic 111–151; BP diastolic 66–88; PULSE 60–94; RESP 16–22; TEMP 97.9–99.2; O2SAT 4–100
[2023-06-21] MEDS: MORPHINE SULFATE INJ 2 MG/ml SYRG IV PRN ×3 (05:14→19:58)
[2023-06-21] MEDS: ONDANSETRON HCL 4 MG/2 ML VIAL IV PRN ×3 (05:14→19:58)
[2023-06-21] MEDS: diphenhdrAMINE HCL 25 MG CAP PO PRN ×2 (11:30→21:43)
[2023-06-22] VITALS (7 sets, daily range): BP systolic 106–129; BP diastolic 58–74; PULSE 60–71; RESP 16–20; TEMP 97.9–98.8; O2SAT 95–100
[2023-06-22] MEDS: ONDANSETRON HCL 4 MG/2 ML VIAL IV PRN ×3 (06:13→23:34)
[2023-06-22] MEDS: MORPHINE SULFATE INJ 2 MG/ml SYRG IV PRN ×3 (06:13→23:36)
[2023-06-22 07:41] LABS: COVID19 ANTIGEN SOFIA FIA NEGATIVE (NEGATIVE)
[2023-06-22] MEDS: diphenhdrAMINE HCL 25 MG CAP PO PRN ×2 (15:51→23:35)
[2023-06-23] VITALS (7 sets, daily range): BP systolic 98–123; BP diastolic 60–73; PULSE 61–72; RESP 14–18; TEMP 97.5–98.6; O2SAT 93–100
[2023-06-23] MEDS: MORPHINE SULFATE INJ 2 MG/ml SYRG IV PRN ×3 (09:56→23:50)
[2023-06-23] MEDS: ONDANSETRON HCL 4 MG/2 ML VIAL IV PRN ×3 (09:57→23:49)
[2023-06-23] MEDS: diphenhdrAMINE HCL 25 MG CAP PO PRN (19:59)
[2023-06-24 05:00] VITALS: BP 115/70; PULSE 65; RESP 17; TEMP 97.3; O2SAT 100
[2023-06-24 07:35] VITALS: RESP 19
[2023-06-24 09:00] VITALS: BP 110/59; PULSE 64; RESP 16; TEMP 98.5; O2SAT 99
== END 2023-06-24 09:45 | DRG 341 ==
LOC: EDUNIT# 14:56 → ER 14:56 → OVERFLOW 23:05 → WEST WING 06-20 09:50
PROVIDERS: ADMIT Nurse Practitioner; ATTEND Family Medicine
DX: S32.592A Other specified fracture of left pubis, initial encounter for closed fracture (principal); I10 Essential (primary) hypertension; J44.9 Chronic obstructive pulmonary disease, unspecified; K76.9 Liver disease, unspecified; Z80.9 Family history of malignant neoplasm, unspecified; Z83.3 Family history of diabetes mellitus; Z91.81 History of falling; Z88.2 Allergy status to sulfonamides; W06.XXXA Fall from bed, initial encounter; Y93.89 Activity, other specified; Y92.092 Bedroom in other non-institutional residence as the place of occurrence of the external cause; Y99.8 Other external cause status
CPT/HCPCS: 36415; 72131; 72192; 73700; 80053; 81001; 85025; 85610; 85730; 86803; 87081; 87340; 87426; 97110; 97163; 97530; G0378; J2405